=== PATIENT | male | born 1980 | race Caucasian/White ===

== ENCOUNTER → 2022-10-07 | Outpatient (CLI) | payer BC, SELFPAY ==
[2022-10-07 11:31] LABS: Erythrocyte Sedimentation Rate 28 mm/hr (0-20)
[2022-10-07 11:32] LABS: International Normalized Ratio 1.1; Prothrombin Time (Protime)PT. 13.9 SECONDS (11.7-14.9)
[2022-10-07 11:35] LABS: Absolute Lymphocyte Count 1.89 X10^3/uL (0.83-4.51); Absolute Neutrophil Count 4.2 X10^3/uL (2.0-7.7); Basophil# 0.05 X10^3/uL; Basophil% 0.7 % (0-1); Eosinophil# 0.15 X10^3/uL; Eosinophils% 2.2 % (0-5); Hematocrit 42.5 % (40-54); Hemoglobin 14.9 g/dL (13.0-16.5); Lymphocyte # 1.89 X10^3/ul (0.83-4.51); Lymphocyte % 27.5 % (19-41); Mean Corp Hgb Conc 35.1 g/dL (32-36); Mean Corpuscular Hgb 32.8 pg (27.0-32.0); Mean Corpuscular Volume 93.6 fL (80-94); Mean Platelet Vol. 11.7 fl (6.2-12.0); Monocyte# 0.57 X10^3/uL; Monocyte% 8.3 % (0-10); NRBC Flagged by Analyzer 0 % (0-5); Neutrophil # 4.19 X10^3/uL (2.7-7.7); Neutrophil % 60.9 % (47-70); Platelet Count 157 K/mm3 (150-450); RBC Distribution Width CV 13.1 % (11.6-14.6); RBC Distribution Width SD 44.8 fl (35.1-43.9); Red Blood Count 4.54 M/mm3 (4.6-6.2); White Blood Count 6.9 K/mm3 (4.4-11.0)
[2022-10-07 12:03] LABS: ALB/GLOB Ratio 0.7 RATIO (0.9-2.4); AST(SGOT) 117 U/L (15-37); Alanine Aminotransfer ALT/SGPT 137 U/L (16-61); Albumin, Serum 3.4 g/dL (3.2-5.0); Alkaline Phosphatase 153 U/L (45-117); Anion Gap 8 (5-15); BUN 14 mg/dL (7-18); BUN/Creat Ratio 14.2 RATIO (10-20); CRP 9.46 mg/L (0.0-3.0); Calcium,Total 8.9 mg/dL (8.5-10.1); Chloride 103 mmol/L (98-107); Creatinine, Serum 0.98 mg/dL (0.70-1.30); EST Glomerular Filtration Rate 88 mL/min (>60); Est Glom Filt Rate - Afr Amer 106 mL/min (>60); Ferritin 630 ng/mL (26-388); Globulin 4.9 g/dL (2.2-4.2); Glucose 114 mg/dL (74-106); LDH 223 U/L (87-241); Potassium 3.4 mmol/L (3.5-5.1); Protein, Total 8.3 g/dL (6.4-8.2); Sodium Level 135 mmol/L (136-145)
[2022-10-07 12:30] LABS: HIV - WCH Non-Reactive (Nonreactive)
[2022-10-08 14:10] LABS: Anti-Centromere B Ab <0.2 AI (0.0-0.9); Anti-Chromatin <0.2 AI (0.0-0.9); Anti-Jo <0.2 AI (0.0-0.9); Anti-Mitochondrial AB <20.0 Units (0.0-20.0); Anti-Scleroderma-70 AB <0.2 AI (0.0-0.9); Anti-dsDNA Ab <1 IU/mL (0-9); RNP Ab 4.9 AI (0.0-0.9); SJOGREN'S Anti-SS-A test < 0.2 AI (0.0-0.9); SJOGREN'S Anti-SS-B test < 0.2 AI (0.0-0.9); Smith Ab <0.2 AI (0.0-0.9)
[2022-10-10 07:08] LABS: Angiotensin Convert Enzyme 53 U/L (14-82); Anti-Smooth Muscle ABS 7 Units (0-19); Carbohydrate AG 19-9 < 2 U/mL (0-35); Carcinoembryonic Antigen 1.1 ng/mL (0.0-4.7); Ceruloplasmin 25.4 mg/dL (16.0-31.0); Copper, Serum or Plasma 98 ug/dL (69-132); Cytoplasmic Ab (C-ANCA) <1:20 titer (Neg:<1:20); Haptoglobin 201 mg/dL (23-355); Perinuclear Ab (P-ANCA) <1:20 titer (Neg:<1:20)
== END | disposition home or self-care (01) ==
LOC: LAB 10:03
PROVIDERS: PCP Family Medicine; Referring Provider Nurse Practitioner Adult Health; Visit Provider Nurse Practitioner Adult Health
DX: K74.60 Unspecified cirrhosis of liver (principal)
CPT/HCPCS: 36415; 80053; 82105; 82140; 82164; 82378; 82390; 82525; 82728; 83010; 83516; 83615; 85025; 85610; 85652; 86140; 86225; 86235; 86256; 86301; 86703

== ENCOUNTER → 2025-03-15 | Outpatient (CLI) | payer BC, SELFPAY ==
[2025-03-15 11:08] LABS: Creatinine, Urine (random) 56.20 mg/dL (39.00-259.00)
[2025-03-24 09:08] LABS: ALDOSTERONE/RENIN RATIO 2.6 (0.0-30.0); Dopamine, Pl <10.0 pg/mL (0.0-36.7); Epinephrine, Pl 24.1 pg/mL (0.0-55.4); Norepinephrine, Pl 253 pg/mL (115-524)
== END | disposition home or self-care (01) ==
LOC: LAB 10:06
PROVIDERS: PCP Family Medicine; Referring Provider Internal Medicine Cardiovascular Disease; Visit Provider Internal Medicine Cardiovascular Disease
DX: I10 Essential (primary) hypertension (principal)
CPT/HCPCS: 36415; 82088; 82384; 82570; 84244

== ENCOUNTER → 2025-04-24 | Outpatient (CLI) | payer BC, SELFPAY ==
--- NOTE | 2025-04-24 12:54 | CT_ITS ---
PROCEDURE: CTA ABDOMEN W/WO CONTRAST 04/24/2025 REASON FOR EXAM: RESISTENT HTN TECHNIQUE: Procedure Code: [id number] Modality: CT Procedure: CTA ABDOMEN W/WO CONTRAST Multiplanar Sagittal and Coronal images were obtained. 3D and or MIPS post processing was performed CONTRAST: Isovue-300 VOLUME: 100 mL One or more dose reduction techniques were used (e.g., Automated exposure control, adjustment of the mA and/or kV according to patient size, use of iterative reconstruction technique). RADIATION DOSE SUMMARY: CTDlvol: 43 mGy DLP: 997 mGycm COMPARISON: None FINDINGS: Aorta: Timing and quality of the contrast bolus is diagnostic. There is no evidence of aortic rupture or dissection. Minimal atherosclerosis in the distal abdominal aorta. No aneurysm. Iliac Arteries: No aneurysm or dissection. Celiac: Mild narrowing of the celiac origin related to the median arcuate ligament with mild poststenotic dilation to approximately 9.4 mm. Incidentally, left phrenic artery originates from the celiac axis. SMA: Patent NANCY : Patent Right Renal: Patent. Early bifurcation into the anterior and posterior divisions. Left Renal: Accessory renal artery is small caliber serving the upper pole. Primary renal artery is widely patent. Extravascular Findings: Slightly lobular contour of the left lobe liver is likely within normal limits. No liver mass seen. The spleen, pancreas, adrenals, kidneys, stomach, small bowel and colon appear normal. Appendix is normal. No free air, free fluid or mass. Partially imaged urinary bladder is grossly unremarkable. Remainder of the pelvis not imaged.4 CT/CTA Abdomen W/WO Contrast IMPRESSION: 1. No aneurysm or dissection. 2. No significant renal artery disease. 3. No adrenal mass Reading Location: [id number]
--- NOTE | 2025-04-24 13:16 | ECHOCS_ITS ---
Reason For Study : HTN Procedure This was a 2D Doppler, Color Flow transthoracic echocardiogram. The study was technically difficult. Contrast injection was performed. Exam performed in department. Left Ventricle Normal LV size. Mild concentric left ventricular hypertrophy. The left ventricular ejection fraction is 60 %. No regional wall motion abnormalities noted. Right Ventricle Normal RV size. Normal systolic function. Atria Normal left atrium. Normal right atrium. Mitral Valve There is moderate mitral annular calcification. Mild (1+) eccentric mitral valve insufficiency. Tricuspid Valve Normal tricuspid valve. Aortic Valve Trisinus/trileaflet aortic valve. Pulmonic Valve Normal pulmonic valve. Great Vessels Normal aortic root. The pulmonary artery is normal size. Inferior vena cava collapse with respiration. Pericardium/Pleural No pericardial effusion. Medication 22 gauge I.V. with prn adaptor inserted into right arm. Diluted definity 2ml given slow IV push to enhance endocardial definition. MMode/2D Measurements & Calculations LVIDd: 4.5 cm IVSd: 1.2 cm Ao root diam: 3.2 cm LVIDs: 3.1 cm LVPWd: 1.3 cm FS: 31.8 % LAV(MOD-bp): 34.7 ml LVAd ap4: 30.2 cm2 SV(MOD-sp4): 62.7 ml LAV(MOD-bp) Indexed: 15.8 ml/m2 LVLd ap4: 7.4 cm SI(MOD-sp4): 28.5 ml/m2 LAV(MOD-sp2): 27.2 ml EDV(MOD-sp4): 103.4 ml LAV(MOD-sp4): 41.3 ml EDV(sp4-el): 104.9 ml LVAs ap4: 17.5 cm2 LVLs ap4: 6.0 cm ESV(MOD-sp4): 40.7 ml ESV(sp4-el): 43.3 ml EF(MOD-sp4): 60.6 % EF(sp4-el): 58.7 % SV(sp4-el): 61.6 ml LA A4 area: 15.6 cm2 LA dimension(2D): 4.2 cm RA A4 area: 7.6 cm2 Time Measurements MV dec time: 0.20 sec Doppler Measurements & Calculations MV E max yinka: 78.2 cm/sec Lat Peak E' Yinka: 6.5 cm/sec Med Peak E' Yinka: 9.2 cm/sec MV A max yinka: 74.5 cm/sec E/E' lat: 12.1 E/E' med: 8.5 MV E/A: 1.0 MV V2 max: 92.5 cm/sec MV dec slope: 413.1 cm/sec2 Ao V2 max: 140.2 cm/sec MV max P.4 mmHg Ao max P.9 mmHg MV V2 mean: 64.6 cm/sec Ao V2 mean: 96.3 cm/sec MV mean P.8 mmHg Ao mean P.3 mmHg MV V2 VTI: 26.7 cm Ao V2 VTI: 27.0 cm AV (velocity ratio): 0.85 LV V1 max: 128.1 cm/sec PA V2 max: 138.6 cm/sec LV V1 max P.6 mmHg PA V2 mean: 90.2 cm/sec LV V1 mean P.4 mmHg LV V1 mean: 87.1 cm/sec LV V1 VTI: 23.0 cm ECHO/Echo Complete W/ Contrast Interpretation Summary Normal LV size. The left ventricular ejection fraction is 60 %. Mild concentric left ventricular hypertrophy. There is moderate mitral annular calcification. Mild (1+) eccentric mitral valve insufficiency. Contrast injection was performed. Ordering Physician: Raheem Vera Referring Physician: Raheem Vera Performed By: Ela Balderas RCS
== END | disposition home or self-care (01) ==
LOC: CT 12:52
PROVIDERS: PCP Family Medicine; Referring Provider Internal Medicine Cardiovascular Disease; Visit Provider Internal Medicine Cardiovascular Disease
DX: I10 Essential (primary) hypertension (principal); I1A.0 Resistant hypertension
CPT/HCPCS: 74175; 93306; Q9957; Q9967; A4216; C8929

== ENCOUNTER → 2025-04-26 | Outpatient (CLI) | payer BC, SELFPAY ==
[2025-04-26 11:44] LABS: Anion Gap 13 (5-15); BUN 15 mg/dL (4-19); BUN/Creat Ratio 16.5 RATIO (10-20); Calcium,Total 9.5 mg/dL (7.6-11.0); Carbon Dioxide 26.7 mmol/L (21.0-32.0); Chloride 100 mmol/L (98-108); Glucose 117 mg/dL (70-99); Potassium 4.4 mmol/L (3.3-5.1)
== END | disposition home or self-care (01) ==
LOC: LAB 10:00
PROVIDERS: PCP Family Medicine; Referring Provider Student in an Organized Health Care Education/Training Program; Visit Provider Student in an Organized Health Care Education/Training Program
DX: I1A.0 Resistant hypertension (principal)
CPT/HCPCS: 36415; 80048